=== PATIENT | male | born 1980 | race Hispanic/Latino ===

== ENCOUNTER 2023-10-07 10:51 | Emergency (ER) | payer SELFPAY ==
[2023-10-07] MEDS ORDERED: HYDROCODONE/APAP 7.5/325 MG TAB ONE (12:22)
--- NOTE | 2023-10-07 14:14 | RAD REPORT ---
EXAM DESCRIPTION: JAIME ORTEGA - 10/07/2023 1:33 pm CLINICAL HISTORY: PAIN COMPARISON: <Comparisons> TECHNIQUE: Left hand, 3 views. FINDINGS: Buckle fracture of the distal radial metaphysis. Comminuted fractures with mild volar subl uxation at the base of the fifth digit distal phalanx. Deformity at the neck of the fifth metacarpal suggesting remote healed fracture. There is no dislocation or periosteal reaction noted. Joint alignment is maintained. No foreign body or other soft tissue abnormality. IMPRESSION: Fractures of the distal radial metaphysis and base of the fifth digit distal phalanx as above.
--- NOTE | 2023-10-07 14:24 | RAD REPORT ---
EXAM DESCRIPTION: Shoulder Right 2 View - 10/07/2023 1:33 pm CLINICAL HISTORY: PAIN COMPARISON: No comparisonsNo comparisonsHand Left 3 View dated 10/07/2023 TECHNIQUE: Internal and external rotation views of the right shoulder were obtained. FINDINGS: There is no acute fracture or dislocation. Deformity at the distal clavicle, may reflect s equelae of remote trauma AC joint is normal in appearance. No acute or suspicious findings. IMPRESSION: No acute osseus abnormality of the right shoulder.
--- NOTE | 2023-10-07 14:39 | RAD REPORT ---
EXAM DESCRIPTION: RAD - Wrist Left 3 View - 10/07/2023 1:33 pm CLINICAL HISTORY: PAIN COMPARISON: No comparisons TECHNIQUE: Left wrist, 3 views. FINDINGS: Buckle fracture of the distal radial metaphysis. Surrounding soft tissue swelling about th e wrist. There is no dislocation or periosteal reaction noted. No suspicious bony finding. No foreign body or other soft tissue abnormality. IMPRESSION: Buckle fracture of the distal radial metaphysis .
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
[2023-10-07 15:20] VITALS: TEMP 97.9
[2023-10-07 15:23] VITALS: BP 142/74; O2SAT 92
== END 2023-10-07 15:07 | disposition home or self-care (01) ==
LOC: ER 10:51
PROC: 2W3DX1Z Immobilization of Left Lower Arm using Splint (ICD-10-PCS; principal; 2023-10-07)
DX: S62.92XA Unspecified fracture of left hand, initial encounter for closed fracture (principal); M25.511 Pain in right shoulder
CPT/HCPCS: 99284